=== PATIENT | female | born 1980 ===

== ENCOUNTER 2017-06-16 09:04 | Emergency (ER) | payer MEDICAID ==
[2017-06-16 09:12] VITALS: BMI 26.6
[2017-06-16 09:15] VITALS: TEMP 98
[2017-06-16] MEDS ORDERED: Oxycodone/Acetaminophen 5/325 mg Tab PO STA (10:23)
[2017-06-16] MEDS ORDERED: Oxycodone/Acetaminophen 5/325 mg Tab ONE (11:45)
--- NOTE | 2017-06-16 12:39 | ED PDOC ---
HPI: Back Time Seen by Provider: 06/16/17 09:25 Chief Complaint (Nursing): Back Pain Chief Complaint (Provider): Back Pain History Per: Patient History/Exam Limitations: no limitations Onset/Duration Of Symptoms: Days Current Symptoms Are (Timing): Still Present Additional Complaint(s): 37 year old female presents to the ED with complaints of pain to her lower back. Patient reports of lifting a heavy bag of rice at the grocery store when she felt bilateral back pain radiating down left leg. Patient reports pain worsened this morning. Patient took 2 tablets of Tylenol this morning but felt no relief. Denies incontinence, paresthesia, weakness, and difficulty ambulating. PMD: Dr. Zoila Preston MD Past Medical History Reviewed: Historical Data, Nursing Documentation, Vital Signs Vital Signs: Last Vital Signs Temp 98 F 06/16/17 09:12 Pulse 71 06/16/17 09:12 Resp 17 06/16/17 09:12 BP 117/58 L 06/16/17 09:12 Pulse Ox 100 06/16/17 09:12 - Medical History PMH: Denies: Chronic Kidney Disease - Surgical History Surgical History: No Surg Hx - Family History Family History: States: Unknown Family Hx - Home Medications Home Medications: Ambulatory Orders Medication Instructions Recorded Multivit/Folic Acid/I 1 tab PO DAILY 11/29/15 [] Ibuprofen [Motrin Tab] 600 mg PO Q6 PRN #30 tab 12/02/15 Cyclobenzaprine [Cyclobenzaprine 10 mg PO TID PRN #15 tab 06/16/17 HCl] Naproxen [Naprosyn] 500 mg PO BID PRN #15 tablet 06/16/17 - Allergies Allergies/Adverse Reactions: Allergies Allergy/AdvReac Type Severity Reaction Status Date / Time No Known Allergies Allergy Verified 05/05/15 10:28 Review of Systems ROS Statement: Except As Marked, All Systems Reviewed And Found Negative Musculoskeletal: Positive for: Back Pain (bilateral back pain radiating to left leg), Leg Pain Physical Exam - Reviewed Nursing Documentation Reviewed: Yes Vital Signs Reviewed: Yes - Physical Exam Appears: Positive for: Non-toxic, No Acute Distress Head Exam: Positive for: ATRAUMATIC, NORMOCEPHALIC Skin: Positive for: Normal Color, Warm, Dry Eye Exam: Positive for: EOMI, Normal appearance, PERRL ENT: Positive for: Normal ENT Inspection Neck: Positive for: Normal, Painless ROM, Supple Cardiovascular/Chest: Positive for: Regular Rate, Rhythm. Negative for: Murmur Respiratory: Positive for: Normal Breath Sounds. Negative for: Respiratory Distress Gastrointestinal/Abdominal: Positive for: Normal Exam, Soft. Negative for: Tenderness Back: Positive for: Normal Inspection, Other (Bilateral Paraspinal Lumbar Tenderness; left straight leg raise, positive left thigh) Extremity: Positive for: Normal ROM, Other (Strength 5/5 in all extremities ). Negative for: Pedal Edema Neurologic/Psych: Positive for: Alert, Oriented, Other (Intact sensations bilaterally) - ECG O2 Sat by Pulse Oximetry: 100 (RA) Pulse Ox Interpretation: Normal Medical Decision Making Medical Decision Making: Time: 1023 Plan: -- ED Urine -- ED Urine Dipstick -- Lumbar Spine Complete [RAD] Accession No. : [id number] Patient Name / ID : COREY BRASWELL / [id number] Exam Date : 06/16/2017 10:27:39 ( Approved ) Study Comment : Sex / Age : F / 37Y Creator : Juan Prajapati MD Dictator : Juan Prajapati MD Reactor Operator : Drawing In Hand : Juan Prajapati MD Approver2 : Report Date : 06/17/2017 07:45:48 My Comment : PROCEDURE: Radiographs of the Lumbar Spine. HISTORY: L lower back pain COMPARISON: No prior. FINDINGS: BONES: Normal alignment. No listhesis. No fracture. DISC SPACES: Unremarkable. OTHER FINDINGS: None. IMPRESSION: Unremarkable radiographs of the lumbar spine. Scribe Attestation: Documented by Glenn Coppola, acting as a scribe for Dr. Krystina Goyal MD. Provider Scribe Attestation: All medical record entries made by the Scribe were at my direction and personally dictated by me. I have reviewed the chart and agree that the record accurately reflects my personal performance of the history, physical exam, medical decision making, and the department course for this patient. I have also personally directed, reviewed, and agree with the discharge instructions and disposition. Disposition - Clinical Impression Clinical Impression: Back strain - Disposition Referrals: Carole Nuñez MD [Family Provider] - Disposition: Routine/Home Disposition Time: 13:42 Condition: STABLE Prescriptions: Cyclobenzaprine [Cyclobenzaprine HCl] 10 mg PO TID PRN #15 tab PRN Reason: Pain Naproxen [Naprosyn] 500 mg PO BID PRN #15 tablet PRN Reason: Pain, Moderate (4-7) Instructions: Muscle Strain, Low Back Pain in Adults Forms: [facility] (Citizen [place])
[2017-06-16 13:50] VITALS: BP 122/71; PULSE 74; RESP 16
--- NOTE | 2017-06-17 07:47 | RAD ---
PROCEDURE: Radiographs of the Lumbar Spine. HISTORY: L lower back pain COMPARISON: No prior. FINDINGS: BONES: Normal alignment. No listhesis. No fracture. DISC SPACES: Unremarkable. OTHER FINDINGS: None. IMPRESSION: Unremarkable radiographs of the lumbar spine.
[2017-06-17 12:09] VITALS: O2SAT 100
== END 2017-06-16 13:50 | disposition home or self-care (01) ==
LOC: H.ER 09:04
DX: S39.012A Strain of muscle, fascia and tendon of lower back, initial encounter (principal); X50.9XXA Other and unspecified overexertion or strenuous movements or postures, initial encounter; Y92.89 Other specified places as the place of occurrence of the external cause
CPT/HCPCS: 72114; 81025; 96372; 99283; J1885

== ENCOUNTER 2018-05-01 12:43 | Emergency (ER) | payer MEDICAID ==
[2018-05-01 12:43] VITALS: BMI 26.6
[2018-05-01 13:07] VITALS: BP 137/81; PULSE 84; RESP 16; TEMP 98.5; O2SAT 99
--- NOTE | 2018-05-01 14:34 | ED PDOC ---
HPI: General Adult Time Seen by Provider: 05/01/18 13:09 Chief Complaint (Nursing): Breast Problem Chief Complaint (Provider): Breast Problem History Per: Patient History/Exam Limitations: no limitations Onset/Duration Of Symptoms: Days (x5) Current Symptoms Are (Timing): Still Present Additional Complaint(s): Patient is a 38 y/o female with no significant PMHx who presents to the ED for evaluation of a painful mass on her left breast for the past five days. Patient contacted Dr. Moreno and scheduled to see him on 06/04/2018. Patient was hoping to get a sooner appointment but was advised to come to the ED instead, thus prompting her visit. Patient is concerned about the possibility for breast cancer considering two of her sisters were diagnosed with breast cancer late into their 40s. Patient's last mammogram and ultrasound was in 2017 and was scheduled for another one in 2018 but did not make an appointment. Patient has been taking Ibuprofen with some relief. Patient denies, fever, chills, shortness of breath, skin changes, rashes, and nipple discharge. Of note, patient's LMP was on 04/09/2018. PCP: Carole Nuñez Past Medical History Reviewed: Historical Data, Nursing Documentation, Vital Signs Vital Signs: Last Vital Signs Temp 98.5 F 05/01/18 13:03 Pulse 84 05/01/18 13:03 Resp 16 05/01/18 13:03 BP 137/81 05/01/18 13:03 Pulse Ox 99 05/01/18 13:03 - Medical History PMH: No Chronic Diseases Denies: Chronic Kidney Disease - Surgical History Surgical History: No Surg Hx - Family History Family History: States: No Known Family Hx Other Family History: breast cancer - Social History Current smoker - smoking cessation education provided: Yes (x3 years; half a pack a day) - Home Medications Home Medications: Ambulatory Orders Medication Instructions Recorded Multivit/Folic Acid/I 1 tab PO DAILY 11/29/15 [] Ibuprofen [Motrin Tab] 600 mg PO Q6 PRN #30 tab 12/02/15 Cyclobenzaprine [Cyclobenzaprine 10 mg PO TID PRN #15 tab 06/16/17 HCl] Naproxen [Naprosyn] 500 mg PO BID PRN #15 tablet 06/16/17 Naproxen [Naprosyn] 500 mg PO BID PRN #10 tab 05/01/18 - Allergies Allergies/Adverse Reactions: Allergies Allergy/AdvReac Type Severity Reaction Status Date / Time No Known Allergies Allergy Verified 05/01/18 13:03 Review of Systems ROS Statement: Except As Marked, All Systems Reviewed And Found Negative Constitutional: Negative for: Fever, Chills Cardiovascular: Positive for: Other (painful mass on left breast without nipple discharge) Respiratory: Negative for: Shortness of Breath Skin: Negative for: Rash Physical Exam - Reviewed Nursing Documentation Reviewed: Yes Vital Signs Reviewed: Yes - Physical Exam Appears: Positive for: No Acute Distress Head Exam: Positive for: ATRAUMATIC, NORMAL INSPECTION, NORMOCEPHALIC Cardiovascular/Chest: Positive for: Regular Rate, Rhythm. Negative for: Murmur Respiratory: Positive for: Normal Breath Sounds. Negative for: Respiratory Distress Neurological/Psych: Positive for: Alert, Oriented (x3) Comments: Breast Exam Chaperoned by Nurse Nesha - Small, mobile, non-tender, non-fluctuated mass on left breast at approximately two to three o'clock - No skin changes, break in skin integrity, warmth, rash, erythema, or nipple discharge - ECG O2 Sat by Pulse Oximetry: 99 (RA) Pulse Ox Interpretation: Normal Medical Decision Making Medical Decision Making: Time: 1400 Impression: Cyst of Breast Plan: Pt. informed that emergent imaging is not necessary and agrees with plan and care. Patient advised to followup with Dr. Moreno but if swelling or fever worsens, patient advised to return to ED. Scribe Attestation: Documented by Bobby Barbosa, acting as a scribe Qing Tubbs PA-C. Provider Scribe Attestation: All medical record entries made by the Scribe were at my direction and personally dictated by me. I have reviewed the chart and agree that the record accurately reflects my personal performance of the history, physical exam, medical decision making, and the department course for this patient. I have also personally directed, reviewed, and agree with the discharge instructions and disposition. Disposition - Clinical Impression Clinical Impression: Cyst of breast - Patient ED Disposition Is Patient to be Admitted: No - Disposition Referrals: Ron Morataya MD [Staff Provider] - Andry Moreno MD [Staff Provider] - Disposition: Routine/Home Disposition Time: 14:30 Condition: STABLE Additional Instructions: FOLLOW UP WITH DR. MORENO OR YOUR OBGYN FOR FURTHER EVALUATION WITHOUT FAIL RETURN TO ED IMMEDIATELY IF SYMPTOMS WORSEN MICHAELLE NICOLE, thank you for letting us take care of you today. Your provider was Lucia Espinoza MD and you were treated for LT BREAST PAIN. The emergency medical care you received today was directed at your acute symptoms. If you were prescribed any medication, please fill it and take as directed. It may take several days for your symptoms to resolve. Return to the Emergency Department if your symptoms worsen, do not improve, or if you have any other problems. Please contact your doctor or call one of the physicians/clinics you have been referred to that are listed on the Patient Visit Information form that is included in your discharge packet. Bring any paperwork you were given at discharge with you along with any medications you are taking to your follow up visit. Our treatment cannot replace ongoing medical care by a primary care provider outside of the emergency department. Thank you for allowing the [facility] team to be part of your care today. If you had an X-Ray or CT scan: A Radiologist will review the ED reading if any change in treatment is needed we will contact you. If you had a blood, urine, or wound culture: It will take several days for the results, if any change in treatment is needed we will contact you. If you had an STI test: It will take 48 hours for the results. Please call after 1 week if you have not heard back. Prescriptions: Naproxen [Naprosyn] 500 mg PO BID PRN #10 tab PRN Reason: Pain Instructions: Common Breast Problems Forms: [employer] (Greek) Print Language: AMHARIC
== END 2018-05-01 14:21 | disposition home or self-care (01) ==
LOC: H.ER 12:43
DX: N60.09 Solitary cyst of unspecified breast (principal); F17.210 Nicotine dependence, cigarettes, uncomplicated